=== PATIENT | male | born 1960 | race Caucasian/White ===

== ENCOUNTER 2016-11-10 04:53 | Inpatient (IN) | payer OTHER ==
[2016-11-04 15:50] VITALS: BMI 32.0
--- NOTE | 2016-11-08 10:53 | HISTORY & PHYSICAL EXAMINATION ---
DATE OF ADMISSION: 11/09/2016 CHIEF COMPLAINT: Left hip pain. HISTORY OF PRESENT ILLNESS: Mr. Barreto is a 56-year-old male with a 10 year history of right hip pain. He rates his pain a 9/10 with his daily activities. He has limited standing and walking tolerance. Pain is worse with weightbearing. The patient recently had his left hip replaced and is now scheduled for the right side. PAST MEDICAL HISTORY: Diabetes, hypertension, sleep apnea, sciatica, neuropathy. He denies heart disease or DVT. PAST SURGICAL HISTORY: Right knee arthroscopy and left total hip arthroplasty. SOCIAL HISTORY: The patient drinks one drink per week. He lives in a 2-story home but is functional on 1 level. 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 FAMILY HISTORY: Negative for DVT. MEDICATIONS: Aspirin 325 mg daily, clonidine 0.1 mg daily, atenolol 100 mg daily, metformin 500 mg b.i.d., Percocet 5/325 p.r.n., lisinopril 20 mg daily. ALLERGIES: PENICILLIN. REVIEW OF SYSTEMS: See HPI. Ten other systems reviewed, all negative. PHYSICAL EXAMINATION: VITAL SIGNS: Height 5 feet 10 inches. Weight 252 pounds. BMI is 36. GENERAL: This is a well-developed, well-nourished male who is alert and oriented x3. Mood and affect are appropriate. HEENT: Normocephalic, atraumatic. Mucous membranes are moist and intact. NECK: Supple without lymphadenopathy. HEART: Regular rate and rhythm without murmurs, rubs or gallops. LUNGS: Clear to auscultation without wheezes or rhonchi. ABDOMEN: Soft and nontender. Bowel sounds are equal and active. EXTREMITIES: No ecchymosis, redness or warmth. Log roll of the hip reproduces pain in the groin. He is neurovascularly intact with +5/5 strength. X-RAY EXAMINATION: AP and lateral views show joint space narrowing and osteophyte formation with partial collapse of his femoral head. IMPRESSION: Degenerative joint disease, right hip. PLAN: The patient will be admitted for a direct anterior right total hip arthroplasty. We will plan on aspirin for DVT prophylaxis.
[2016-11-10] VITALS (9 sets, daily range): BP systolic 126–137; BP diastolic 74–86; PULSE 52–83; TEMP 36.4–37.1; O2SAT 96–100; Ht 177.8 cm; Wt 102.3 kg
[~2016-11-10] VITALS: Ht 177.8 cm; Wt 102.3 kg
[~2016-11-10 04:53] MED LIST: ACETAMINOPHEN 500 MG TAB PO SCH; ATEN-175 PO; CHOL100010 PO; CLINDAMYCIN 600 MG/54 ML D5W 54 ML IV SCH; CLONIDINE HCL 0.1 MG TAB PO SCH; CTP1X PO; CeleBREX 200 MG CAP PO SCH; FAMOTIDINE 20 MG TAB PO SCH; GABAPENTIN 300 MG CAP PO SCH; GLC/500 PO; LACTATED RINGER'S 1000ML IV SCH; LISI-725 PO; METOCLOPRAMIDE HCL 10 MG TAB PO SCH; OXYCODONE HCL 10 MG TABCR (OXYCONTIN) PO SCH; POLYMYXIN B SULFATE 100,000 UNITS in NSS 100ML IR SCH; ROPIVACAINE 5MG/ML 30 ML 150 MG, BUPIVACAINE/EPINEPHR 0.5% MPF 30 ML, KETOROLAC TROMETH... INFIL SCH; TRANEXAMIC ACID INJ 1,000 MG in SODIUM CHLORIDE 0.9% 100ML 100 ML IV SCH; VANCOMYCIN INJ 400 MG in NSS 100ML IR SCH
[2016-11-10] MEDS ORDERED: LACTATED RINGER'S 1000ML IV SCH (06:00)
[2016-11-10] MEDS ORDERED: OXYCODONE HCL 10 MG TABCR (OXYCONTIN) PO SCH (06:00)
[2016-11-10] MEDS ORDERED: ACETAMINOPHEN 500 MG TAB PO SCH (06:00)
[2016-11-10] MEDS ORDERED: CLINDAMYCIN 600 MG/54 ML D5W 54 ML IV SCH (06:00)
[2016-11-10] MEDS ORDERED: CeleBREX 200 MG CAP PO SCH (06:00)
[2016-11-10] MEDS ORDERED: VANCOMYCIN INJ 400 MG in NSS 100ML IR SCH (06:00)
[2016-11-10] MEDS ORDERED: GABAPENTIN 300 MG CAP PO SCH (06:00)
[2016-11-10] MEDS ORDERED: CLONIDINE HCL 0.1 MG TAB PO ONE (06:00)
[2016-11-10] MEDS ORDERED: POLYMYXIN B SULFATE 100,000 UNITS in NSS 100ML IR SCH (06:00)
[2016-11-10] MEDS ORDERED: METOCLOPRAMIDE HCL 10 MG TAB PO SCH (06:00)
[2016-11-10] MEDS ORDERED: FAMOTIDINE 20 MG TAB PO SCH (06:00)
[2016-11-10] MEDS ORDERED: ROPIVACAINE 5MG/ML 30 ML 150 MG, BUPIVACAINE/EPINEPHR 0.5% MPF 30 ML, KETOROLAC TROMETH... INFIL SCH ×7 (06:00)
[2016-11-10] MEDS ORDERED: LACTATED RINGER'S 1000ML 500 ML IV ONE (06:00)
[2016-11-10] MEDS ORDERED: BUPIVACAINE 0.5 % 5 MG/1 ML PF 10ML VIAL ONE (06:18)
[2016-11-10] MEDS ORDERED: OXYC-57 PO (06:23)
[2016-11-10] MEDS: TRANEXAMIC ACID INJ 1,000 MG in SODIUM CHLORIDE 0.9% 100ML 100 ML IV SCH ×2 (06:38→10:02)
[2016-11-10] MEDS ORDERED: MIDAZOLAM HCL 1 MG/ML 2ML VIAL ONE ×2 (06:39)
[2016-11-10] MEDS ORDERED: ORTHO JOINT ANESTHETIC ONE (06:54)
--- NOTE | 2016-11-10 07:01 | History & Physical Bridge Note ---
H&P Re-Evaluation Bridge Note: I have examined the patient, reviewed the History & Physical and in the interval since the performance of the History & Physical I have noted the following changes of clinical significance: No changes noted
[2016-11-10] MEDS ORDERED: FENTANYL CITRATE INJ 50 MCG/1 ML 2 ML VIAL IV PRN (07:30)
[2016-11-10] MEDS ORDERED: ONDANSETRON INJ 2 MG/ML 2 ML VIAL IV PRN ×2 (07:30→09:00)
[2016-11-10] MEDS ORDERED: ATROPINE SULFATE 0.1 MG/ML 5ML SYR IV PRN (07:30)
[2016-11-10] MEDS ORDERED: EpHEDrine SULFATE INJ 50 MG/ML AMP IV PRN (07:30)
[2016-11-10] MEDS ORDERED: PROPOFOL IV EMULSION 10 MG/ML 20 ML VIAL IV ONE (08:17)
[2016-11-10] MEDS ORDERED: EpHEDrine SULFATE 50MG/5ML SYR ONE (08:17)
[2016-11-10] MEDS ORDERED: LIDOCAINE HCL 2% 2 ML VIAL (20MG/ML) ONE (08:17)
[2016-11-10] MEDS ORDERED: POVIDONE-IODINE OP SOLN 30 ML BTL TOP ONE (08:42)
[2016-11-10] MEDS ORDERED: BACITRACIN 50000 UNIT VIAL IR ONE (08:43)
--- NOTE | 2016-11-10 08:56 | [facility] Post Operative Brief Note ---
Immediate Operative Summary Operative Date Nov 10, 2016. Pre-Operative Diagnosis Degenerative joint disease right hip Post-Operative Diagnosis same as preop Procedure(s) Performed Right Total Hip Arthroplasty,Direct Anterior Approach, Uncemented Surgeon Dr. Abelardo Lim Front Office Java Developer Surgeon(s) BAM [place] Estimated Blood Loss 125ML Findings SEVERE DZ Specimens A: Right Femoral Head Complication(s) None Disposition Recovery Room / PACU
[2016-11-10] MEDS ORDERED: MAGNESIUM HYDROXIDE SUSP 30 ML UDC PO PRN (09:00)
[2016-11-10] MEDS ORDERED: METOCLOPRAMIDE HCL INJ 5 MG/ML 2 ML VIAL IV PRN (09:00)
[2016-11-10] MEDS ORDERED: TRAMADOL HCL 50 MG TAB PO PRN (09:00)
[2016-11-10] MEDS ORDERED: ALUMINUM/MAGNESIUM/SIMETH (MAALOX MAX) 30 ML UDC PO PRN (09:00)
[2016-11-10] MEDS ORDERED: SOD PHOSPHATE/SOD BIPHOSPHATE ENEMA 132 ML BTL PR PRN (09:00)
[2016-11-10] MEDS ORDERED: OXYCODONE HCL IR 5 MG TAB (IMMEDIATE RELEASE) PO PRN (09:00)
[2016-11-10] MEDS ORDERED: ZOLPIDEM TARTRATE 5 MG TAB PO PRN (09:00)
[2016-11-10] MEDS ORDERED: BISACODYL 10 MG SUPP PR PRN (09:00)
[2016-11-10] MEDS ORDERED: MoRPHine SULFATE 2 MG/ML CARP IV PRN (09:00)
[2016-11-10] MEDS ORDERED: DiphenhydrAMINE HCL 50 MG/ML VIAL IV PRN (09:00)
--- NOTE | 2016-11-10 09:14 | OPERATIVE REPORT ---
DATE OF OPERATION: 11/10/2016 PREOPERATIVE DIAGNOSIS: Severe degenerative arthritis, right hip. POSTOPERATIVE DIAGNOSIS: Same. PROCEDURE: Right total hip replacement. SURGEON: Dr. Lim. C PROGRAMMER: Hema Koch PA-C. ANESTHESIA: Spinal. BLOOD LOSS: 125 mL. REPLACEMENT FLUIDS: 1700 mL crystalloid. DRAINS: Hemovacs x1. CULTURES: None. COMPLICATIONS: None. COMPONENTS USED: Burns \T\ Nephew Polar Hip System: Acetabulum size 56, femur size 4 lateral offset, femoral head 0, neck length 36 mm. NOTE: Hema Koch PA-C was present and assisted throughout due to the complicated nature of this case. He helped with preparation and setup, first assisted throughout, personally closed the fascial, subcutaneous and skin layers and applied the postoperative dressing. DESCRIPTION: Following satisfactory spinal, the patient was supine. The left leg was placed in the well leg bailon. The right leg in the traction device. The right leg was prepared with ChloraPrep and draped sterilely. Following a surgical time-out an anterior approach in the interval between the sartorius and tensor muscles was completed. The patient showed very poor musculature. The circumflex femoral vessels were identified and ligated. An anterior capsulotomy performed exposing a severely arthritic femoral neck and head. The femoral neck and head were trimmed and removed. The acetabular self-retaining retractor was placed. Acetabular reaming was completed with fluoroscopic guidance and a 56 shell was impacted into an anatomic position, confirmed with fluoroscopy. A single screw was placed. Following a local anesthetic and irrigation, the poly liner was placed. The femur was then placed into position of external rotation, extension and adduction. Femoral canal was prepared up to the size 4. A trial reduction with a 0 neck length head showed pentecostal of leg lengths using fluoroscopic anatomic landmarks and good fit and fill of the proximal canal and good position of the stem with fluoroscopy. The hip was dislocated. The trial component was removed. The final implant was placed and after local anesthetic and irrigation was reduced. A Betadine soak was performed. After 5 minutes the Betadine was irrigated. The capsule was closed with 1-0 Vicryl interrupted. A drain was placed. Fascia was closed with a running suture of 1 Vicryl. The subcutaneous tissues with 2-0 Vicryl. The skin with a running subcuticular stitch of 3-0 V-Loc. Dermabond and a dry dressing were applied. The patient was returned to his bed in good condition. I attest to the content of the Intraoperative Record and any orders documented therein. Any exceptio ns are noted below.
--- NOTE | 2016-11-10 09:32 | DIAGNOSTIC IMAGING REPORT ---
RIGHT HIP UNILATERAL 1 VIEW CLINICAL HISTORY: Right anterior total hip arthroplasty. COMPARISON STUDY: None. FINDINGS: Total fluoroscopy time was 12 seconds. A single fluoroscopic spot image of the right hip was obtained. There is a right total hip arthroplasty. The hardware appears intact. No fracture or dislocation. IMPRESSION: Fluoroscopy provided for a right total hip arthroplasty. Electronically signed by: Abelino Gonzales M.D. 11/10/2016 9:30 AM
--- NOTE | 2016-11-10 09:49 | Anesthesiology Progress Note ---
Anesthesia Post Op Note Date & Time Nov 10, 2016 at 09:49 Vital Signs Pain Intensity: 4 Vital Signs Past 12 Hours Date Time Temp Pulse Resp B/P Pulse Ox O2 Delivery O2 Flow Rate FiO2 11/10/16 09:45 36.4 56 16 114/69 100 Nasal Cannula 2 11/10/16 09:35 55 16 121/75 100 Nasal Cannula 2 11/10/16 09:25 56 16 132/75 100 Nasal Cannula 2 11/10/16 09:19 36.6 59 16 116/72 96 Nasal Cannula 2 11/10/16 05:59 36.8 58 18 131/79 96 Room Air Notes Mental Status: alert / awake / arousable, participated in evaluation Pt Amnestic to Procedure: Yes Nausea / Vomiting: adequately controlled Pain: adequately controlled Airway Patency, RR, SpO2: stable & adequate BP & HR: stable & adequate Hydration State: stable & adequate Neuraxial Anesthesia: was administered, sensory block is resolving Anesthetic Complications: no major complications apparent
[2016-11-10] MEDS: SODIUM CHLORIDE 0.9% 1000ML 1,000 ML IV SCH ×2 (10:05→19:37)
--- NOTE | 2016-11-10 10:08 | DIAGNOSTIC IMAGING REPORT ---
AP PELVIS, CROSSTABLE LATERAL RIGHT HIP History: Right total hip arthroplasty. Degenerative arthritis. Postop. FINDINGS: The patient is status post a right total hip arthroplasty. The hardware is intact. No fracture or dislocation. Evidence for prior left total hip arthroplasty. IMPRESSION: Right total hip arthroplasty. No evidence for hardware complication Electronically signed by: Abelino Gonzales M.D. 11/10/2016 10:06 AM
[2016-11-10] MEDS ORDERED: PHARMACY GLYCEMIC MGMT CONSULT PRN (11:00)
[2016-11-10] MEDS: PANTOprazole SOD 40 MG TAB PO SCH (11:19)
[2016-11-10] MEDS: MULTIVITAMIN TAB PO SCH (11:19)
--- NOTE | 2016-11-10 11:27 | Pharmacy Progress Note ---
Glycemic Control Intl Consult Date of Service Nov 10, 2016. Scope Glycemic Pharmacist consulted by Dr Lim on 11/10/16 for glycemic control and to write orders per [facility] inpatient glycemic control protocol Objective Weight (Kilograms): 102.27 Accuchecks BSG (last 24hrs): Test 11/10/16 05:47 11/10/16 09:30 Bedside Glucose 151 mg/dl (70-99) 140 mg/dl (70-99) HbA1c No recent value reported Recent Pertinent Medications Outpatient Anti-diabetic Regimen: * Metformin 500mg PO BIDM Risk Factors for Insulin Resistance: * Steroids intra-articular * Recent Surgery * Diet Assessment & Plan ASSESSMENT: * 56yo T2DM male with unknown degree of outpatient control, no recent A1c reported. Will order per protocol * Pt is maintained on oral antidiabetic agents as an outpatient * Oral agents are not recommended for inpatient use d/t difficultly titrating in acute situations, drug interactions, & changing PO intake/status * ADA recommends re-initiating outpatient oral agents 1-2 days prior to discharge if/when appropriate if they were held on admission. * Recommended regimen for inpatient use is SQ Basal Bolus insulin regimen with Lantus + NovoLog * Weight based SQ basal bolus insulin dosing per [facility] calculator will be used while oral antidiabetic agents on hold. Will titrate parameters based on BSG trends * Pt with well controlled diabetes as an outpatient and minimal risk factors for insulin resistance. Basal insulin not warranted at this time. Will initiate basal insulin for persistent hyperglycemia (BSG > 180mg/dl) * ADA & AACE recommend a goal blood sugar range 140-180 mg/dl for the majority of critically ill & non-critically ill patients. However, more stringent targets may be selected in individual cases. Will utilize more stringent goal of 110-140mg/dl based on patient age & comorbidities. Additionally, tighter glycemic control is warranted to facilitate wound/infection healing post- operatively. PLAN FOR INPATIENT GLYCEMIC CONTROL: * Holding outpatient oral diabetes medications * Will re-initiate outpatient dosing of metformin 1-2 days prior to discharge after renal function assessed and PO intake adequate * Basal insulin with LANTUS 15 units SQ if BSG > 180mg/dl * Correctional Insulin with NOVOLOG per scale ACHS or Q6hrs while NPO * Goal Range: Low 110 mg/dL - High 140 mg/dL * Correction Factor: 30 mg/dL/unit * Nutritional / Prandial insulin per carb ratio of 1 unit per 10 grams CHO consumed * Please note that the plan above was derived based on current level of insulin resistance and hospital stress. These recommendations are appropriate for inpatient admission only. Plan of care upon discharge will need to be reassessed to avoid potential outpatient hypo/hyperglycemia. Thank you.
[2016-11-10] MEDS ORDERED: GLUCAGON FOR INJ 1 MG VIAL SQ PRN (11:30)
[2016-11-10] MEDS ORDERED: GLUCOSE 40% GEL 15 GM TUBE PO PRN (11:30)
[2016-11-10] MEDS ORDERED: DEXTROSE 50% 50 ML SYR IV PRN (11:30)
[2016-11-10] MEDS ORDERED: GLUCOSE 10 TABS/TUBE PO PRN (11:30)
[2016-11-10] MEDS ORDERED: LANTUS PER UNIT CHARGE SQ PRN (11:30)
[2016-11-10] MEDS: KETOROLAC TROMETHAMINE 30 MG/ML VIAL IV. SCH ×3 (12:31→23:48)
[2016-11-10] MEDS: INSULIN ASPART 100 UNITS/ML 3 ML PEN SC SCH ×3 (12:38→21:55)
[2016-11-10] MEDS: ACETAMINOPHEN 500 MG TAB PO SCH ×2 (14:22→21:52)
[2016-11-10] MEDS ORDERED: TRANEXAMIC ACID INJ 1,000 MG in SODIUM CHLORIDE 0.9% 100ML 100 ML IV ONE (15:00)
[2016-11-10] MEDS: CLINDAMYCIN IV 600 MG in DEXTROSE 5% ADD-VANTAGE 50ML 50 ML IV SCH ×2 (15:38→23:48)
[2016-11-10] MEDS ORDERED: [UNRECOGNIZED DRUG - OTHER] SCH (17:45)
[2016-11-10] MEDS ORDERED: SENNA 8.6 MG TAB PO SCH (21:00)
[2016-11-10] MEDS: ASPIRIN 81 MG ECTAB PO SCH (21:50)
[2016-11-10] MEDS: CLONIDINE HCL 0.1 MG TAB PO SCH (21:51)
[2016-11-11 04:03] VITALS: BP 127/78; PULSE 62; TEMP 37; O2SAT 100
[2016-11-11] MEDS: SODIUM CHLORIDE 0.9% 1000ML 1,000 ML IV SCH (05:46)
[2016-11-11] MEDS: ACETAMINOPHEN 500 MG TAB PO SCH (05:48)
[2016-11-11] MEDS: KETOROLAC TROMETHAMINE 30 MG/ML VIAL IV. SCH ×2 (05:49→12:13)
[2016-11-11 07:35] VITALS: BP 165/101; PULSE 71; TEMP 36.9; O2SAT 99
--- NOTE | 2016-11-11 07:36 | Orthopedic Progress Note ---
Orthopedic Progress Note Date of Service Nov 11, 2016. Subjective Post OP Day: 1 Reports: feeling well, Denies: SOB, calf pain, chest pain, light headedness, nausea / vomiting Objective calves soft nontender, N/V intact, hip located, dressing C/D/I, A&O x3, toes mobile, hemovac drainage (85/25 CC PER SHIFT) Date Time Temp Pulse Resp B/P Pulse Ox O2 Delivery O2 Flow Rate FiO2 11/11/16 04:03 37.0 62 16 127/78 100 Room Air 11/10/16 23:54 36.4 60 16 137/86 99 Room Air 11/10/16 23:50 Room Air 11/10/16 20:58 37.1 60 14 129/76 97 Room Air 11/10/16 15:25 Room Air 11/10/16 15:06 36.9 53 16 130/83 97 Room Air 11/10/16 13:05 59 16 133/77 98 Room Air 11/10/16 12:05 52 16 126/83 100 Nasal Cannula 3.0 11/10/16 11:05 56 16 126/78 100 Nasal Cannula 2.0 11/10/16 10:35 54 16 137/84 100 Nasal Cannula 2.0 11/10/16 10:05 Nasal Cannula 11/10/16 10:05 100 Nasal Cannula 2.0 11/10/16 10:05 36.8 59 14 126/74 100 Nasal Cannula 2.0 11/10/16 09:55 36.4 56 16 120/71 100 Nasal Cannula 2 11/10/16 09:45 36.4 56 16 114/69 100 Nasal Cannula 2 11/10/16 09:35 55 16 121/75 100 Nasal Cannula 2 11/10/16 09:25 56 16 132/75 100 Nasal Cannula 2 11/10/16 09:19 36.6 59 16 116/72 96 Nasal Cannula 2 Laboratory Results 24 Hours: Test 11/11/16 04:44 Assessment & Plan Assessment: POD#1 SP RIGHT DEB, DIRECT ANTERIOR Inhouse Planning Pain Management: Celebrex, PO Tylenol, Oxy IR DVT Prophylaxis: TEDs, SCDs, ASA Discharge Planning Discharge Planning: home with home health ([facility])
--- NOTE | 2016-11-11 07:37 | Discharge Instructions ---
Discharge Instructions Admission Reason for Admission: Right Hip Degenerative Arthritis Discharge Discharge Diagnosis / Problem: SP RIGHT DEB Discharge Goals Goal(s): Decrease discomfort, Improve function, Increase independence Activity Recommendations Activity Limitations: per Instructions/Follow-up section . Instructions / Follow-Up Instructions / Follow-Up ACTIVITY RECOMMENDATIONS: SELF CARE INSTRUCTIONS AFTER TOTAL HIP REPLACEMENT : Direct Anterior Approach Until the incision and soft tissues around your hip have healed, there is a possibility that the hip prosthesis could dislocate. A. Hip flexion ( Up & Down out of chair or steps ) may be difficult. This is normal. B. Numbness in front of the thigh is also normal for a few weeks. C. Use hand rails when walking on stairs. D. Wear low heeled shoes with non-slip soles. E. Be sure that your floors are free of things that could trip you - throw rugs , electrical cords, small objects. Avoid wet and waxed floors, especially with crutches and canes. F. Try to walk several times a day with rest periods between. G. Continue with all the exercises taught to you in the hospital. Again, make walking a part of your daily routine. SPECIAL CARE INSTRUCTIONS: VERY IMPORTANT TO READ AND REVIEW A. You may still be at risk for phlebitis and blood clots. 1. Wear surgical stockings (ANDREZ hose) for 2 weeks after surgery to improve circulation and reduce swelling. 2. Take Aspirin 81mg twice daily for 4 weeks or as directed by your doctor. This is your blood thinner. 3. High risk patients may be prescribed a stronger blood thinner if necessary. 4. If you are on Coumadin normally, your family doctor/electric motor fitter should monitor your blood work. Expect a phone call the day of or the day after bloodwork is drawn to adjust your dosage. B. You must take antibiotics before having dental work, bladder, bowel and other surgery. Your doctor will provide you with a permanent card to carry describing precautions. C. Call [facility] if you have a fever, redness or swelling around the incision, cloudy drainage from incision, or sudden increase in pain in your hip, not relieved by your regular pain medication. D. Please call the office at if you have any concerns or questions about your operation or recovery. * YOU MAY SHOWER, NO TUB BATHS UNTIL CLEARED BY YOUR DOCTOR. - Keep an extra close eye on the top portion of your incision. Be sure to keep clean & dry. * WEAR ANDREZ HOSE 20 HOURS PER DAY FOR 2 WEEKS. * YOU MAY PROGRESS FROM A WALKER, TO A CANE, TO INDEPENDENT AT YOUR OWN PACE. * MOST PATIENTS WILL HAVE HOME NURSING FOR THERAPY. IF YOU DECIDE TO DO OUTPATIENT PHYSICAL THERAPY, PLEASE SCHEDULE THIS 3 TIMES PER WEEK. * DERMABOND Prineo- This is a mesh tape dressing that is covered with glue. It should remain in place until the incision is properly healed, usually 10-14 days. This dressing is designed to naturally slough off. You may trim the excess mesh tape as it peels off. Incision may be briefly wet in a shower. Dry immediately by blotting with a clean, dry towel. Do not bath or swim until instructed by your doctor. Do not scratch, rub, or pick at the dressing. Do not apply any topical ointments or lotions until dressing is completely removed and/or instructed by your doctor. There may be a small piece of suture material at one end of your incision. Do not pull or trim this. If it is bothersome or catching on clothing, you may cover it with a band-aid. FOLLOW UP VISIT: If appointment is not already scheduled: Please call [facility] to make a follow-up appointment for 2 weeks after your surgery at . Current Hospital Diet Patient's current hospital diet: Diabetes Type 2 Diet Discharge Diet Recommended Diet: Regular Diet Procedures Procedures Performed: Right Total Hip Arthroplasty,Direct Anterior Approach, Uncemented Pending Studies Studies pending at discharge: no Laboratory Results Hemoglobin A1c Test 11/11/16 04:44 Range/Units Medical Emergencies . Who to Call and When: Medical Emergencies: If at any time you feel your situation is an emergency, please call 911 immediately. . Non-Emergent Contact Non-Emergency issues call your: Primary Care Provider . "Provider Documentation" section prepared by Radha Bryan. VTE Core Measure Inpt VTE Proph given/why not?: Other Anticoagulation, T.E.D. Stockings, SCD's
[2016-11-11] MEDS ORDERED: SNK PO (07:39)
[2016-11-11] MEDS ORDERED: ONDA8TAB6 PO (07:39)
[2016-11-11] MEDS ORDERED: CLB200 PO (07:39)
[2016-11-11] MEDS ORDERED: ASPEC81 PO (07:39)
[2016-11-11] MEDS ORDERED: RXC5 PO (07:39)
[2016-11-11] MEDS ORDERED: ACET-1138 PO (07:39)
[2016-11-11 08:18] LABS: BASO % 0.1 %; BASO ABS # 0.01 K/uL (0-0.2); COMPLETE YES; EOS % 1.5 %; HEMATOCRIT 29.6 % (42-52); IG% 0.2 %; LYMPH % 17.7 %; LYMPH ABS # 1.73 K/uL (1.2-3.4); MEAN CELL VOLUME 89.4 fL (80-100); MEAN CORPUSCULAR HEMOGLOBIN 30.8 pg (25-34); MEAN CORPUSCULAR HGB CONC 34.5 g/dl (32-36); MONO % 10.8 %; NEUT % 69.7 %; PLATELET COUNT 236 K/uL (130-400); RED BLOOD COUNT 3.31 M/uL (4.7-6.1); WHITE BLOOD COUNT 9.78 K/uL (4.8-10.8)
--- NOTE | 2016-11-11 08:23 | Anesthesiology Progress Note ---
Anesthesia Post Op Note Date & Time Nov 11, 2016 at 08:22 Vital Signs Pain Intensity: 0.0 Vital Signs Past 12 Hours Date Time Temp Pulse Resp B/P Pulse Ox O2 Delivery O2 Flow Rate FiO2 11/11/16 07:35 36.9 71 16 165/101 99 Room Air 11/11/16 04:03 37.0 62 16 127/78 100 Room Air 11/10/16 23:54 36.4 60 16 137/86 99 Room Air 11/10/16 23:50 Room Air 11/10/16 20:58 37.1 60 14 129/76 97 Room Air Notes Mental Status: alert / awake / arousable, participated in evaluation Pt Amnestic to Procedure: Yes Nausea / Vomiting: adequately controlled Pain: adequately controlled Airway Patency, RR, SpO2: stable & adequate BP & HR: stable & adequate Hydration State: stable & adequate Neuraxial Anesthesia: sensory block resolved Anesthetic Complications: no major complications apparent
[2016-11-11 08:41] LABS: BUN/CREATININE RATIO 20.5 (10-20); CALCIUM 8.7 mg/dl (8.5-10.1); CREATININE 0.83 mg/dl (0.60-1.40); POTASSIUM 3.9 mmol/L (3.5-5.1)
[2016-11-11] MEDS: PANTOprazole SOD 40 MG TAB PO SCH (08:57)
[2016-11-11] MEDS: MULTIVITAMIN TAB PO SCH (08:57)
[2016-11-11 08:58] VITALS: BP 135/78; PULSE 75
[2016-11-11] MEDS ORDERED: CHOLECALCIFEROL 1000 INTER.UNIT TAB PO SCH (09:00)
[2016-11-11] MEDS: CLONIDINE HCL 0.1 MG TAB PO SCH (09:00)
[2016-11-11] MEDS: ASPIRIN 81 MG ECTAB PO SCH (09:00)
[2016-11-11] MEDS ORDERED: LISINOPRIL 20 MG TAB PO SCH (09:00)
[2016-11-11] MEDS: INSULIN ASPART 100 UNITS/ML 3 ML PEN SC SCH ×2 (09:04→12:57)
[2016-11-11 10:07] VITALS: BP 135/78; PULSE 75; TEMP 36.9; O2SAT 99
[2016-11-11 10:27] LABS: ESTIMATED AVERAGE GLUCOSE 111 mg/dl; HA1C FLAG Normal (Normal)
[2016-11-11 10:56] VITALS: BP 145/87; PULSE 69; O2SAT 98
[2016-11-11 11:19] VITALS: BP 134/79; PULSE 72; TEMP 36.7; O2SAT 100
[2016-11-12] MEDS ORDERED: INSULIN ASPART 100 UNITS/ML 3 ML PEN SC SCH (08:00)
[2016-11-12] MEDS ORDERED: METFORMIN HCL 500 MG TAB PO SCH (08:30)
[2016-11-12] MEDS ORDERED: CeleBREX 200 MG CAP PO SCH (21:00)
--- NOTE | 2016-11-16 14:21 | DISCHARGE SUMMARY ---
DISCHARGE DIAGNOSIS: Degenerative joint disease, right hip. SECONDARY DIAGNOSES: Diabetes mellitus, hypertension, sleep apnea, sciatica, neuropathy. CONSULTS: None. COMPLICATIONS: None. PROCEDURES: Right total hip arthroplasty performed by Dr. Umair Lim on 11/10/2016. BRIEF HISTORY: As dictated in the history and physical. HOSPITAL SUMMARY: The patient was admitted on the above date and had the above known surgery performed which he tolerated well. On his first postoperative day he was feeling well and had no complaints. Calves were soft, nontender. Neurovascularly intact. Hip was located. Dressings clean, dry and intact. Toes were mobile and vital signs were stable. He is afebrile. He was started on physical therapy protocol and continued on DVT prophylaxis and pain management. Hemoglobin was 10.2. He was progressing with his physical therapy and remaining stable and it was felt he could be discharged to home on 11/11/2016. For further review, please see chart. LAB AND X-RAY DATA: As per chart. DISCHARGE INSTRUCTIONS: The patient was discharged to home in satisfactory condition on 11/11/2016. DIET: Diabetic. ACTIVITY: Follow DEB instruction sheets for direct anterior approach and also follow special care instructions as noted. Follow up with Dr. Umair Lim in 2 weeks for follow-up appointment. The patient to make appointment if one has not been made for you. DISCHARGE MEDICATIONS: Acetaminophen 1000 mg p.o. q. 8 hours, aspirin 81 mg p.o. b.i.d., Celebrex 200 mg p.o. b.i.d., Zofran 8 mg p.o. q. 8 hours p.r.n., oxycodone 5-10 mg p.o. q. 4 hours p.r.n., senna 17.2 mg p.o. at bedtime. Resume taking atenolol 100 mg p.o. q.a.m., vitamin D 5000 p.o. q.a.m., clonidine 1 tab p.o. b.i.d., lisinopril 20 mg p.o. q.a.m., metformin 500 mg p.o. b.i.d. Stop taking Percocet.
== END 2016-11-11 13:06 | disposition home health service (06) | DRG 470 ==
LOC: ENRESERVTM → ENRESERVDT → C.ACU 04:53 → C.3E 09:00
PROVIDERS: ADMIT Orthopaedic Surgery; ATTEND Orthopaedic Surgery
PROC: 0SR904A Replacement of Right Hip Joint with Ceramic on Polyethylene Synthetic Substitute, Uncemented, Open Approach (ICD-10-PCS; principal; 2016-11-10 07:15)
DX: M16.11 Unilateral primary osteoarthritis, right hip (principal); I10 Essential (primary) hypertension; G47.30 Sleep apnea, unspecified; E11.40 Type 2 diabetes mellitus with diabetic neuropathy, unspecified; M54.40 Lumbago with sciatica, unspecified side; E66.9 Obesity, unspecified; Z68.36 Body mass index [BMI] 36.0-36.9, adult; Z96.642 Presence of left artificial hip joint; Z79.82 Long term (current) use of aspirin; Z79.84 Long term (current) use of oral hypoglycemic drugs; Z79.891 Long term (current) use of opiate analgesic; Z79.899 Other long term (current) drug therapy